=== PATIENT | female | born 1965 | race Caucasian/White ===

== ENCOUNTER → 2017-12-15 | Outpatient (CLI) | payer OTHER ==
--- NOTE | 2017-12-15 09:41 | RAD ---
DATE: 12/15/2017 EXAM: DIGITAL SCREEN BILAT W/CAD HISTORY: Routine screening COMPARISON: 07/24/2015 This study was interpreted with the benefit of Computerized Aided Detection (CAD). FINDINGS: Breast Density: HETERO The breast parenchyma Is heterogeneouslyy dense, which could reduce sensitivity of mammography. Breast parenchyma level C. There is asymmetry identified in the left mid breast best seen on MLO view. IMPRESSION: Asymmetry identified in the left mid breast best seen on the MLO view. Recommend spot compression view of the left breast in MLO view. A ML view is recommended. If this persists ultrasound is recommended. BI-RADS CATEGORY: 0 INCOMPLETE: NEEDS ADDITIONAL IMAGING EVALUATION AND/OR PRIOR MAMMOGRAMS FOR COMPARISON. RECOMMENDED FOLLOW-UP: ADD ADDITIONAL IMAGING PQRS compliance statement: Patient information was entered into a reminder system with a target due date immediate recall for the next mammogram. Mammography is a sensitive method for finding small breast cancers, but it does not detect them all and is not a substitute for careful clinical examination. A negative mammogram does not negate a clinically suspicious finding and should not result in delay in biopsying a clinically suspicious abnormality. "Our facility is accredited by the [employer] Mammography [employer]."
== END | disposition home or self-care (01) ==
LOC: MAMMO 07:41
PROVIDERS: ATTEND Specialist
DX: Z12.31 Encounter for screening mammogram for malignant neoplasm of breast (principal); N64.89 Other specified disorders of breast
CPT/HCPCS: 77067

== ENCOUNTER → 2018-02-02 | Outpatient (CLI) | payer OTHER ==
--- NOTE | 2018-02-02 09:21 | RAD ---
DATE: 02/02/2018 EXAM: DIGITAL DIAGNOSTIC LT HISTORY: Suspicious screening study COMPARISON: 02/02/2018, 07/24/2015 This study was interpreted with the benefit of Computerized Aided Detection (CAD). The breast parenchyma is heterogeneously dense, which could reduce sensitivity of mammography. Breast parenchyma level C. FINDINGS: On the oblique view of the screening study a small asymmetric opacity was noted centrally. Spot compression views of that region as well as a straight mediolateral view do not demonstrate a true nodule. The appearance on the screening study appears to have been due to a summation shadow. On the current views the fibroglandular pattern is unchanged since previous exams. IMPRESSION: Stable left mammograms without evidence of malignancy. BI-RADS CATEGORY: 2 BENIGN FINDING(S) RECOMMENDED FOLLOW-UP: 12M 12 MONTH FOLLOW-UP PQRS compliance statement: Patient information was entered into a reminder system with a target due date for the next mammogram. Mammography is a sensitive method for finding small breast cancers, but it does not detect them all and is not a substitute for careful clinical examination. A negative mammogram does not negate a clinically suspicious finding and should not result in delay in biopsying a clinically suspicious abnormality. "Our facility is accredited by the [employer] Mammography [employer]."
== END | disposition home or self-care (01) ==
LOC: MAMMO 08:29
PROVIDERS: ATTEND Specialist
DX: R92.8 Other abnormal and inconclusive findings on diagnostic imaging of breast (principal)
CPT/HCPCS: 77065

== ENCOUNTER 2021-03-10 15:28 | Emergency (ER) | payer OTHER ==
[~2021-03-10] VITALS: Ht 167.6 cm; Wt 72.3 kg
[2021-03-10] MEDS ORDERED: LIDOCAINE 1%/EPI 1:100,000 10 ML VIAL. INJ ONE (17:15)
[2021-03-10] MEDS ORDERED: DIPH,PERTUSS(ACELL),TET VAC/PF 0.5 ML SYRINGE. VAX IM ONE (17:15)
[2021-03-10] MEDS ORDERED: HYDROcodone/APAP 5/325MG 1 TAB TABLET PO ONE (17:45)
[2021-03-10 19:00] VITALS: BP 106/60
[2021-03-10] MEDS ORDERED: CEPH500T PO (19:28)
[2021-03-10] MEDS ORDERED: HYDR-2155 PO (19:30)
--- NOTE | 2021-03-10 19:30 | PHYS DOC ---
Past History Past Medical History: No Pertinent History (OC JI APRN) Past Surgical History: Other Additional Past Surgical Histo: abation (OC JI APRN) Alcohol Use: None (OC JI APRN) General Adult EDM: Chief Complaint: LACERATION/AVULSION HPI: HPI: Patient is a 55-year-old female presents with laceration to her right thumb. 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 Patient denies taking anything for pain prior to arrival. Patient is not up-to-date on vaccinations. (OC JI APRN) Review of Systems: Review of Systems: Respiratory: Denies cough or shortness of breath Cardiovascular: Denies chest pain or edema Musculoskeletal: Denies back pain or joint pain Integument: Ports laceration to right thumb Neurologic: Denies headache, focal weakness or sensory changes (OC JI APRN) Current Medications: Current Meds: Current Medications Medications (Trade) Dose Ordered Sig/Maria De Jesus Start Time Stop Time Status Last Admin Dose Admin Acetaminophen/ Hydrocodone Bitart (Lortab 5/325) 1 tab 1X ONCE 03/10/21 17:45 03/10/21 17:46 DC 03/10/21 17:47 1 TAB Diphtheria/ Pertussis/Tetanus Vacc (ADACEL TDap SYRINGE) 0.5 ml ONCE ONCE 03/10/21 17:15 03/10/21 17:16 DC 03/10/21 17:18 0.5 ML Lidocaine/ Epinephrine (Xylocaine 1%-Epi 1:100,000) 10 ml 1X ONCE 03/10/21 17:15 03/10/21 17:16 DC 03/10/21 17:16 10 ML (OC JI APRN) Allergies: Allergies: Allergies Coded Allergies Type Severity Reaction Last Updated Verified Penicillins Allergy Unknown 03/10/21 Yes (OC JI APRN) Physical Exam: PE: Cardiovascular:Heart rate regular rhythm, no murmur [] Lungs & Thorax: Bilateral breath sounds clear to auscultation [] Skin: 6-1/2 cm laceration to right thumb Extremities: No tenderness, ROM intact, no edema. [] Neurologic: Alert and oriented X 3, normal motor function, Psychologic: Affect normal, judgement normal, mood normal. [] (OC JI APRN) Current Patient Data: Vital Signs: Vital Signs Date Time Temp Pulse Resp B/P (MAP) Pulse Ox O2 Delivery O2 Flow Rate FiO2 03/10/21 17:47 18 97 Room Air 03/10/21 15:34 98.8 94 112/72 (85) (OC JI APRN) EKG: EKG: [] (OC JI APRN) Radiology/Procedures: Radiology/Procedures: [] Wound cleaned with saline. 5-0, 10- vicryl,sutures placed. (OC JI APRN) Heart Score: C/O Chest Pain: No Risk Factors: Risk Factors: DM, Current or recent (<one month) smoker, HTN, HLP, family history of CAD, obesity. Risk Scores: Score 0 - 3: 2.5% MACE over next 6 weeks - Discharge Home Score 4 - 6: 20.3% MACE over next 6 weeks - Admit for Clinical Observation Score 7 - 10: 72.7% MACE over next 6 weeks - Early Invasive Strategies (OC JI APRN) Course & Med Decision Making: Course & Med Decision Making Pertinent Labs and Imaging studies reviewed. (See chart for details) [] 55-year-old female presents with laceration to her right thumb. Patient went from CMJ to trapezium. Refill less than 3 seconds. Sensation is intact. Patient having trouble with flexion of her thumb. Consulted [facility] and advised to suture her thumb and start her on Keflex. Patient instructed to call Dr. Giraldo's nurse on Friday, to set up surgery for Friday or Friday. Patient thumb placed in aluminum foam splint. Patient is appreciative and okay with discharge plan. (OC JI APRN) Course & Med Decision Making Did not see or evaluate patient. 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 (HOMER PARIS MD) Mic Disclaimer: Dragon Disclaimer: This electronic medical record was generated, in whole or in part, using a voice recognition dictation system. (OC JI APRN) Departure Departure: Impression: Primary Impression: Thumb laceration Qualified Codes: S61.111A - Laceration without foreign body of right thumb with damage to nail, initial encounter Disposition: HOME / SELF CARE / HOMELESS Condition: STABLE Referrals: MABLE CHAVEZ MD (PCP) Patient Instructions: Laceration Care, Adult Additional Instructions: Were seen in the emergency room for a laceration to your right thumb. I contacted [facility] who wants you to call them on Friday to set up an appointment for surgery for Friday or Friday. You will need to call [phone] Giraldo's nurse. I am also starting you on an antibiotic which you need to take as directed. If you have questions or concerns you can return to the emergency room. Otherwise follow-up with [facility] on Friday. EMERGENCY DEPARTMENT GENERAL DISCHARGE INSTRUCTIONS Thank you for coming to [facility] (ED) today and trusting us with you care. We trust that you had a positivie experience in our Emergency Department. If you wish to speak to the department management, you may call the director at [phone]. YOUR FOLLOW UP INSTRUCTIONS ARE FOLLOWS: 1. Do you have a private Doctor? If you do not have a private doctor, please ask for a resource list of physicians or clinics that may be able to assist you with follow up care. 2. The Emergency Physician has interpreted your x-rays. The X-Ray specialist will also review them. If there is a change in the findings, you will be notified in 48 hours when at all possible. 3. A lab test or culture has been done, your results will be reviewed and you will be notified if you need a change in treatment. ADDITIONAL INSTRUCTIONS AND INFORMATION: 1. Your care today has been supervised by a physician who is specially trained in emergency care. Many problems require more than one evaluation for a complete diagnosis and treatment. We recommend that you schedule your follow up appointment as recommended to ensure complete treatment of you illness or injury. If you are unable to obtain follow up care and continue to have a problem, or if your condition worsens, we recommend that you return to the ED. 2. We are not able to safely determine your condition over the phone nor are we able to give sound medical advice over the phone. For these safety reasons, if you call for medical advice we will ask you to come to the ED for further evaluation. 3. If you have any questions regarding these discharge instructions please call the ED at [phone]. SAFETY INFORMATION: In the interest of safety, wellness, and injury prevention; we encourage you to wear your sealbelt, if you smoke; quite smoking, and we encourage family to use a protective helmet for bicycling and other sporting events that present an increased risk for head injury. IF YOUR SYMPTOMS WORSEN OR NEW SYMPTOMS DEVELOP, OR YOU HAVE CONCERNS ABOUT YOUR CONDITION; OR IF YOUR CONDITION WORSENS WHILE YOU ARE WAITING FOR YOUR FOLLOW UP APPOINTMENT; EITHER CONTACT YOUR PRIMARY CARE DOCTOR, THE PHYSICIAN WHOSE NAME AND NUMBER YOU WERE GIVEN, OR RETURN TO THE ED IMMEDIATELY. Scripts Hydrocodone Bit/Acetaminophen (HYDROCODONE-APAP 5-325 ) 1 Each Tablet 1-2 TAB PO PRN Q4-6HRS PRN for PAIN for 4 Days, #20 TAB 0 Refills Prov: OC JI APRN 03/10/21 Cephalexin (CEPHALEXIN) 500 Mg Tablet 1 TAB PO TID for laceration for 7 Days, #21 TAB Prov: OC JI APRN 03/10/21 OC JI APRN March 10, 2021 19:30 HOMER PARIS MD March 11, 2021 00:19
== END 2021-03-10 19:54 | disposition home or self-care (01) ==
LOC: ER 15:28
DX: S61.011A Laceration without foreign body of right thumb without damage to nail, initial encounter (principal); W26.8XXA Contact with other sharp object(s), not elsewhere classified, initial encounter; Y93.89 Activity, other specified; Y92.89 Other specified places as the place of occurrence of the external cause; Y99.8 Other external cause status
CPT/HCPCS: 12002; 29130; 90471; 90715; 99283-25